=== PATIENT | female | born 2005 | race Caucasian/White ===

== ENCOUNTER 2023-07-05 13:57 | Outpatient (CLI) | payer OTHER, SELFPAY | END 2023-07-05 13:58 | disposition home or self-care (01) | LOC: FRMREF 13:58 | PROVIDERS: Visit Provider Nurse Practitioner Pediatrics | DX: R53.83 Other fatigue (principal) | CPT/HCPCS: 82728 ==

== ENCOUNTER 2023-11-30 09:20 | Outpatient (CLI) | payer OTHER, SELFPAY | END 2023-11-30 09:21 | disposition home or self-care (01) | LOC: NFLDREF 12-01 06:36 | PROVIDERS: PCP Physician Assistant Medical; Visit Provider Physician Assistant Medical | DX: Z11.3 Encounter for screening for infections with a predominantly sexual mode of transmission (principal) | CPT/HCPCS: 87491; 87591 ==

== ENCOUNTER 2024-12-12 09:02 | Outpatient (CLI) | payer OTHER, SELFPAY | END 2024-12-12 09:03 | disposition home or self-care (01) | LOC: NFLDREF 12-18 17:53 | PROVIDERS: PCP Physician Assistant Medical; Referring Provider Physician Assistant Medical; Visit Provider Physician Assistant Medical | DX: Z00.01 Encounter for general adult medical examination with abnormal findings (principal); F41.9 Anxiety disorder, unspecified; G47.9 Sleep disorder, unspecified; Z13.228 Encounter for screening for other metabolic disorders; Z13.6 Encounter for screening for cardiovascular disorders; Z11.4 Encounter for screening for human immunodeficiency virus [HIV]; Z11.59 Encounter for screening for other viral diseases; Z11.3 Encounter for screening for infections with a predominantly sexual mode of transmission | CPT/HCPCS: 80053; 80061; 82728; 84443; 86592; 86703; 86706; 86803; 87340; 87491; 87591 ==

== ENCOUNTER 2025-02-06 14:05 | Outpatient (CLI) | payer OTHER, SELFPAY | END 2025-02-06 14:06 | disposition home or self-care (01) | LOC: NFLDREF 02-08 17:40 | PROVIDERS: PCP Physician Assistant Medical; Referring Provider Physician Assistant Medical; Visit Provider Physician Assistant Medical | DX: Z01.84 Encounter for antibody response examination (principal) | CPT/HCPCS: 86706 ==

== ENCOUNTER 2025-03-13 15:55 | Outpatient (CLI) | payer OTHER, SELFPAY | END 2025-03-13 15:56 | disposition home or self-care (01) | LOC: NFLDREF 03-19 11:03 | PROVIDERS: PCP Physician Assistant Medical; Referring Provider Physician Assistant Medical; Visit Provider Physician Assistant Medical | DX: Z11.1 Encounter for screening for respiratory tuberculosis (principal) | CPT/HCPCS: 86480 ==

== ENCOUNTER 2025-04-27 10:10 | Outpatient (CLI) | payer OTHER, SELFPAY | END 2025-04-27 10:11 | disposition home or self-care (01) | LOC: NFLDREF 04-30 14:19 | PROVIDERS: PCP Physician Assistant Medical; Referring Provider Physician Assistant Medical; Visit Provider Physician Assistant Medical | DX: Z01.84 Encounter for antibody response examination (principal) | CPT/HCPCS: 86707 ==

== ENCOUNTER 2025-04-30 17:05 | Outpatient (CLI) | payer OTHER, SELFPAY | END 2025-04-30 17:06 | disposition home or self-care (01) | LOC: NFLDREF 05-03 09:10 | PROVIDERS: PCP Physician Assistant Medical; Referring Provider Physician Assistant Medical; Visit Provider Physician Assistant Medical | DX: Z01.84 Encounter for antibody response examination (principal) | CPT/HCPCS: 86706 ==